=== PATIENT | female | born 1950 | race Caucasian/White ===

== ENCOUNTER → 2016-07-27 | Outpatient (CLI) | payer MEDICARE ==
--- NOTE | 2016-07-27 12:12 | MRI ---
EXAM DESCRIPTION: MR THORACIC SPINE WITHOUT IV CONTRAST CLINICAL HISTORY: 65 y/o F, RADICULOPATHY back pain between shoulder blades, no known injury COMPARISON: Chest CT performed on July 27, 2016 TECHNIQUE: Multiplanar multi sequence images of the thoracic spine were obtained without gadolinium contrast. FINDINGS: Vertebral body height and alignment are well maintained. There is no bone marrow edema. Visualized portions of the spinal cord are unremarkable. The paraspinal soft tissues are unremarkable. No pleural fluid collection is identified. Axial images were obtained only through 2 levels in the thoracic spine. Both levels show minimal posterior disk bulging without central canal or neural foraminal stenosis. There is disc desiccation and anterior disc bulging with anterior osteophyte formation at additional levels in the mid thoracic spine, but no posterior disc bulging, facet joint hypertrophy, central canal or neural foraminal stenosis is seen at any level. IMPRESSION: Anterior disc bulging and anterior osteophyte formation at several levels in the mid thoracic spine, but no significant posterior disc bulging, facet joint hypertrophy, central canal or neural foraminal stenosis at any level in the thoracic spine. Electronically signed by: Rashad Monroe DO 07/27/2016 12:10
--- NOTE | 2016-07-27 12:12 | CT ---
EXAM DESCRIPTION: Chest CT. CLINICAL HISTORY: In mild doses COMPARISON: None. TECHNIQUE: A noncontrast volumetric CT was acquired and displayed in multiplanar reconstructions. FINDINGS: Mediastinum: Prior sternotomy. Coronary artery disease noted. Visualized lymph nodes are within normal limits for CT size criteria. No acute aortic abnormality, pericardial effusion, or mediastinal mass. Upper Abdomen: Gallbladder has been removed. Lungs: Atelectasis seen within the left lung base. Dependent changes noted bilaterally. No pulmonary mass or nodule. No filling defect within the large bronchi or trachea. Bones: No suspicious bone lesion is seen. IMPRESSION: Atelectasis seen within the left lung base. No additional significant findings seen on today's exam. No pulmonary findings to account for patient's hemoptysis. Extensive Coronary artery disease in patient who is status post sternotomy. Electronically signed by: Javier Hernandez MD 07/27/2016 12:10
== END ==
LOC: MRI 09:41
PROVIDERS: ATTEND Family Medicine
DX: R04.2 Hemoptysis (principal); J98.11 Atelectasis; I25.10 Atherosclerotic heart disease of native coronary artery without angina pectoris; M51.14 Intervertebral disc disorders with radiculopathy, thoracic region; Z98.890 Other specified postprocedural states

== ENCOUNTER → 2016-11-18 | Outpatient (CLI) | payer MEDICARE | END | disposition home or self-care (01) | LOC: GMAJ 15:41 | PROVIDERS: ATTEND Family Medicine | DX: I25.10 Atherosclerotic heart disease of native coronary artery without angina pectoris (principal); R06.02 Shortness of breath ==

== ENCOUNTER → 2017-11-24 | Outpatient (CLI) | payer MEDICARE | LOC: LAB.O 13:38 | PROVIDERS: ATTEND Internal Medicine Rheumatology | DX: Z79.899 Other long term (current) drug therapy (principal) ==

== ENCOUNTER → 2018-05-23 | Outpatient (CLI) | payer MEDICARE, OTHER | LOC: LAB.O 14:07 | PROVIDERS: ATTEND Internal Medicine Rheumatology | DX: Z79.899 Other long term (current) drug therapy (principal) ==

== ENCOUNTER 2018-08-06 13:08 | Emergency (ER) | payer OTHER ==
--- NOTE | 2018-08-06 14:00 | RAD ---
EXAM DESCRIPTION: Chest,2 Views CLINICAL HISTORY: cough, mild sob 3d COMPARISON: CT July 27, 2016 FINDINGS: Cardiac silhouette is within normal limits. EKG leads project over the chest. Aorta is tortuous. There is atherosclerosis. Linear opacity within the left lung may represent scar. This is unchanged compared with the prior exam. There is no focal parenchymal or pleural disease. There is no acute osseous process visualized. IMPRESSION: No evidence of acute cardiopulmonary disease. Electronically signed by: Nato Blood MD 08/06/2018 1:57 PM [employer]
[2018-08-06] MEDS ORDERED: AZITHROMYCIN 250 MG TAB PO ONE (14:19)
[2018-08-06] MEDS ORDERED: IBUPROFEN 200 MG TAB PO ONE (14:19)
[2018-08-06] MEDS ORDERED: CETIRIZINE HCL 10 MG TAB PO ONE (14:19)
--- NOTE | 2018-08-06 14:25 | ED.PDOC ---
History of Present Illness - General Chief Complaint: Respiratory Problem Time Seen by Provider: 08/06/18 13:09 Source: patient Exam Limitations: no limitations - History of Present Illness Initial Comments: the patient is a 67-year-old female presenting to the emergency room secondary to a minimally productive cough over the last 3 days. Mild shortness of breath with exertion. No swelling. No chest pain. Low-grade fever. She has had a runny nose and congestion. No chest pain. No syncope or near syncope. She reports that she does not tolerate steroids. Severity: mild Improving Factors: nothing Worsening Factors: nothing Associated Symptoms: cough, fever/chills, malaise, shortness of breath - with activity primarily Allergies/Adverse Reactions: Allergies Lisinopril Allergy (Verified 08/06/18 13:46) Morphine Allergy (Verified 08/06/18 13:46) Home Medications: Ambulatory Orders Azithromycin 500 mg PO DAILY #5 tab 08/06/18 Celecoxib 200 mg PO DAILY 08/06/18 Clopidogrel Bisulfate [Plavix] 75 mg PO QD 08/06/18 Etanercept [Enbrel Sureclick] 50 mg IM WKLY 08/06/18 Folic Acid 1 mg PO 08/06/18 Furosemide [Lasix] 40 mg PO 08/06/18 Isosorbide Mononitrate [Isosorbide Mononitrate ER] 60 mg PO 08/06/18 Losartan Potassium 100 mg PO DAILY 08/06/18 Methotrexate [Xatmep] 2.5 mg PO DAILY 08/06/18 Tramadol HCl 100 mg PO DAILY 08/06/18 tiZANidine [Zanaflex] 4 mg PO DAILY 08/06/18 Review of Systems - Review of Systems Constitutional: States: fever - low-grade, malaise EENTM: States: nose congestion Respiratory: States: cough Cardiology: States: no symptoms reported Gastrointestinal/Abdominal: States: no symptoms reported Genitourinary: States: no symptoms reported Musculoskeletal: States: no symptoms reported Skin: States: no symptoms reported Neurological: States: no symptoms reported Endocrine: States: no symptoms reported All other Systems: No Change from Baseline Past Medical History (General) - Patient Medical History Hx Seizures: No Hx Stroke: No Hx Dementia: No Hx Asthma: No Hx of COPD: No Hx Cardiac Disorders: Yes Hx Congestive Heart Failure: No Hx Pacemaker: No Hx Hypertension: Yes Hx Thyroid Disease: No Hx Diabetes: No Hx Gastroesophageal Reflux: No Hx Renal Disease: No Hx Cancer: No Hx of HIV: No Hx Hepatitis C: No Hx MRSA: No - Vaccination History Hx Tetanus, Diphtheria Vaccination: No Hx Influenza Vaccination: Yes Hx Pneumococcal Vaccination: No Immunizations Up to Date: No - Social History Hx Tobacco Use: No Hx Chewing Tobacco Use: No Hx Alcohol Use: No Hx Substance Use: No Hx Substance Use Treatment: No Hx Depression: No Feels Threatened In Home Enviroment: No Feels Threatened In a Relationship: No Hx Physical Abuse: No Hx Emotional Abuse: No Hx Suspected Abuse: No - Activities of Daily Living Hospice Agency (if applicable):: None - Female History Patient is a Female of Child Bearing Age (10 -59 yrs old): No Patient : No - Triage Comment ED Triage Comment: took tylenol before arriving Family Medical History - Family History Mother Family History: Unknown Physical Exam - Physical Exam General Appearance: Alert, Comfortable, No apparent distress Eye Exam: bilateral normal Ears, Nose, Throat: hearing grossly normal, normal pharynx, nasal congestion Neck: full range of motion, supple Respiratory: no respiratory distress, no accessory muscle use, rhonchi Cardiovascular/Chest: normal peripheral pulses, regular rate, rhythm, no edema Peripheral Pulses: radial,right: 2+, radial,left: 2+, dorsalis pedis,right: 2+, dorsalis pedis,left: 2+ Gastrointestinal/Abdominal: non tender, soft Rectal Exam: deferred Back Exam: no CVA tenderness, no vertebral tenderness Extremity: non-tender, normal inspection, no pedal edema, normal capillary refill 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 Chest x-ray is reassuring and rapid flu is negative. She is not hypoxic and not in respiratory distress. The patient reports an intolerance to steroids so I do want her to use some ibuprofen several times daily to help reduce inflammation. She can additionally take 1 Zyrtec twice daily to help reduce mucus production. A humidifier at night may also help. She is going to be placed on azithromycin for atypical bacterial coverage, with first dose given here. ER warnings were given for any significant worsening. Follow up with primary care doctor next week. - Results/Orders Results/Orders: rapid flu is negative. Chest x-ray shows no acute pathology. - EKG/XRAY/CT CT Ordered: No CT Interpretation Call Back: No Departure - Departure Clinical Impression: Acute bronchitis Qualifiers: Bronchitis organism: unspecified organism Qualified Code(s): J20.9 - Acute bronchitis, unspecified Disposition: Discharge to Home or Self Care Condition: Fair Departure Forms: ED Discharge - Pt. Copy, Patient Portal Self Enrollment Instructions: Acute Bronchitis, Adult (DC) Diet: regular diet Activity: increase activity as tolerated Referrals: Nickolas Hendrix MD [Primary Care Provider] - 1-5 Days Prescriptions: Azithromycin 500 mg PO DAILY #5 tab Home Medications: Ambulatory Orders Azithromycin 500 mg PO DAILY #5 tab 08/06/18 Celecoxib 200 mg PO DAILY 08/06/18 Clopidogrel Bisulfate [Plavix] 75 mg PO QD 08/06/18 Etanercept [Enbrel Sureclick] 50 mg IM WKLY 08/06/18 Folic Acid 1 mg PO 08/06/18 Furosemide [Lasix] 40 mg PO 08/06/18 Isosorbide Mononitrate [Isosorbide Mononitrate ER] 60 mg PO 08/06/18 Losartan Potassium 100 mg PO DAILY 08/06/18 Methotrexate [Xatmep] 2.5 mg PO DAILY 08/06/18 Tramadol HCl 100 mg PO DAILY 08/06/18 tiZANidine [Zanaflex] 4 mg PO DAILY 08/06/18 Additional Instructions: the patient is a 67-year-old female presenting with what appears to be an acute bronchitis. Chest x-ray is reassuring and rapid flu is negative. She is not hypoxic and not in respiratory distress. The patient reports an intolerance to steroids so I do want her to use some ibuprofen several times daily to help reduce inflammation. She can additionally take 1 Zyrtec twice daily to help reduce mucus production. A humidifier at night may also help. She is going to be placed on azithromycin for atypical bacterial coverage, with first dose given here. ER warnings were given for any significant worsening. Follow up with primary care doctor next week.
[2018-08-06 14:44] VITALS: BP 117/73; TEMP 98.6; O2SAT 95
== END 2018-08-06 14:44 | disposition home or self-care (01) ==
LOC: ER 13:08
DX: J20.9 Acute bronchitis, unspecified (principal); I51.9 Heart disease, unspecified; Z79.899 Other long term (current) drug therapy; Z88.8 Allergy status to other drugs, medicaments and biological substances; Z88.5 Allergy status to narcotic agent
CPT/HCPCS: 71046; 87502; Q0144

== ENCOUNTER 2018-10-03 14:35 | Observation (INO) | payer OTHER ==
--- NOTE | 2018-10-03 14:55 | HP ---
SUPERVISING PHYSICIAN: Tr Vila M.D. CHIEF COMPLAINT: Near syncopal episodes secondary to bradycardia. HISTORY OF PRESENT ILLNESS: Ms. Priest is a 67 year-old female patient of Dr. Hendrix. She was seen in the clinic today for medication checkup. She had noted that she had been having some episodes of presyncope and dizziness. On vital sign check in the clinic, it was noted that on palpation of her radial pulse she was showing to be significantly bradycardic. EKG was showing a rate of 63 when actual palpated pulse was in the 30s. She is on Metoprolol 100 mg daily. She has no history of any issues with bradycardia. No recent changes in medication. She denies any actual syncopal episodes but notes that she has been significantly weakened and dizzy at times. She notes it is worse in the afternoons after lunch. She provides a significant history of coronary artery disease with previous coronary artery bypass grafting and multiple stent placements. She had one small episode of chest pain she reported 3 days previous, but no current chest pains on admission. She does have some ongoing shortness of breath which is more noticeable with exertional efforts. Dr. Hendrix requested that we place the patient in observation and take her off of Metoprolol and requested to observe her cardiac telemetry duvall and see if this will improve her heart rate. She does see Dr. Little for cardiology and he will hopefully be in the office this coming Tuesday at which time she will be followed-up. The patient now is going to be placed in observation for close cardiac monitoring and further management of her cardiac medication regimen. PAST MEDICAL HISTORY: 1. Hyperlipidemia. 2. Hypertension. 3. Coronary artery disease. 4. Abdominal aortic aneurysm. 5. Hepatitis B diagnosed in 1989. 6. Rheumatoid arthritis diagnosis in 2013. 7. Cervical spondylosis. 8. Anxiety. PAST SURGICAL HISTORY: 1. Coronary artery bypass graft in 2008. 2. Cholecystectomy. 3. Hysterectomy in 1969. 4. Multiple PTCAs with multiple stent placement with the most recent being in 2012 in April. 5. Abdominal aortic aneurysm stent placement. HOME MEDICATIONS: 1. Tizanidine 4 mg daily. 2. Tramadol 100 mg daily. 3. Methotrexate 2.5 mg. 4. Losartan 100 mg daily. 5. Isosorbide 50 mg daily. 6. Lasix 40 mg daily. 7. Folic acid 1 mg daily. 8. Enbrel 50 mg IM weekly. 9. Plavix 75 mg every day. 10. Celebrex 200 mg daily. ALLERGIES: LISINOPRIL AND MORPHINE. FAMILY HISTORY: Father's history is unknown. Mother at age 62 secondary to myocardial infarction. SOCIAL HISTORY: The patient is retired. She is . She has 3 children. She lives at [facility]. She does not drink alcohol and she smoked but stopped many years previously. Denies any illicit drug use. REVIEW OF SYSTEMS: CONSTITUTIONAL: Denies any fever or chills, general malaise. HEENT: Negative for ear aches, sore throat, nasal congestion, headaches. RESPIRATORY: Denies any shortness of breath, wheezing, coughing. CARDIOVASCULAR: Denies any active chest pains, reported chest pains 2 to 3 days ago. No peripheral edema. She has had some presyncopal episodes but no actual syncopal episodes. GASTROINTESTINAL: Negative for nausea, vomiting and diarrhea, constipation or abdominal pain. GENITOURINARY: Denies any dysuria, hematuria or polyuria. NEUROLOGIC: Negative for any ataxia, seizures, vision changes. PHYSICAL EXAMINATION: VITAL SIGNS: Pulse 97, blood pressure 46, satting 96% on room air with blood pressure 97/62, showing respirations of 16. GENERAL: The patient is well nourished and well hydrated. Appears to be in no acute distress. Resting comfortably in bed. She is alert. HEENT: Tympanic membranes are clear bilaterally. Oropharynx is pink and moist without any lesions. NECK: Supple, non-tender. Full range of motion. CHEST: Lung sounds are clear to auscultation bilaterally without any rhonchi, wheezing or rales. CARDIOVASCULAR: Regular rate and rhythm without appreciable murmurs, gallops, or rubs. GASTROINTESTINAL: No rebound tenderness. No guarding. Abdomen is soft, non- tender. Positive bowel sounds. EXTREMITIES: Without any edema. NEUROLOGIC: She is alert and oriented times three. LABORATORY: White count shows to be within normal limits at 5,700, hemoglobin 14.1, hematocrit 42.9, platelet count 157,000. Differential shows to be without a left shift. Normal PT and PTT. Chemistries show normal electrolytes with sodium 143, potassium 3.6, BUN 13, creatinine 1.15. Glucose 106. All liver functions are within normal limits. Initial troponin was 0.02. Urinalysis is pending. 12-lead showed from the clinic sinus bradycardia with frequent PVCs. ASSESSMENT: 1. Symptomatic bradycardia possibly due to beta blockade with Metoprolol. 2. History of rheumatoid arthritis on Methotrexate and Enbrel. 3. History of hypertension. 4. History of abdominal aortic aneurysm stent being followed by Dr. Hendrix. PLAN: The patient is going to be placed in observation tonight and started on telemetry. Will put a hold on her beta beni for tomorrow. Possibly this is something that will resolve with change in medication. Will have her on DVT prophylaxis per protocol. Should she show any signs on the monitor concerning for PVCs and decrease in bradycardia become more symptomatic, certainly will initiate treatment. Hopefully we can get her in to see Dr. Little this coming Tuesday. If not, it will be probably next week. Will plan to monitor her troponins every 6 hours as needed and readjust for any chest pains that may occur. Again will anticipate length of stay to be at least 1 to 2 days. Until she can transition back to outpatient management will continue to monitor and treat as needed. Again, will hold her Metoprolol and reassess in the morning and hopefully this will resolve her bradycardia. Once discharged she will need continued followup with Dr. Little, her sales systems engineer, as well as Dr. Hendrix. #[id number] MTDU
[2018-10-03] MEDS ORDERED: SODIUM CHLORIDE 0.9% (FLUSH) 10 ML SYG IV PRN (15:49)
[2018-10-03] MEDS ORDERED: NITROGLYCERIN 0.4 MG 25 EA TAB SL PRN (15:49)
[2018-10-03] MEDS ORDERED: ACETAMINOPHEN 325 MG TAB PO PRN (15:49)
[2018-10-03] MEDS ORDERED: IV SET AND CAP CHANGE INJ INJ SCH (16:00)
--- NOTE | 2018-10-03 16:14 | RAD ---
Study: Single Frontal Radiograph of the Chest. Indication:Bardycardia Comparison: August 06, 2018 Impression: Heart size normal. Median sternotomy wires present. Atherosclerosis aorta. Mild bibasilar atelectasis, otherwise lungs clear. No acute osseous abnormality. Electronically signed by: Hector Ricci MD 10/03/2018 4:11 PM CDT
[2018-10-03] MEDS: SODIUM CHLORIDE 0.9% (FLUSH) 10 ML SYG IV SCH (20:40)
[2018-10-03] MEDS ORDERED: CLOPIDOGREL 75 MG TAB PO SCH (22:30)
[2018-10-04] MEDS ORDERED: PARoxetine HCL 20 MG TAB ONE (08:13)
[2018-10-04] MEDS ORDERED: PANTOPRAZOLE SODIUM IV 40 MG VIAL ONE (08:24)
[2018-10-04] MEDS: SODIUM CHLORIDE 0.9% (FLUSH) 10 ML SYG IV SCH (08:53)
[2018-10-04] MEDS ORDERED: ENOXAPARIN SODIUM 40 MG/0.4 ML SYG SUBCU SCH (09:00)
[2018-10-04] MEDS ORDERED: PAROXETINE HCL 40 MG PO SCH (09:00)
[2018-10-04] MEDS ORDERED: FOLIC ACID 1 MG TAB PO SCH (09:00)
[2018-10-04] MEDS ORDERED: LOSARTAN POTASSIUM 100 MG TAB PO SCH (09:00)
[2018-10-04] MEDS ORDERED: NON-FORMULARY MEDICATION 1 EA MIS (Rosuvastatin Calcium [Rosuvastatin Calcium] 20 MG) PO SCH (09:00)
[2018-10-04] MEDS ORDERED: ASPIRIN (CHEWABLE) 81 MG TAB PO SCH (09:00)
[2018-10-04] MEDS ORDERED: PANTOPRAZOLE SODIUM TAB 40 MG PO SCH (09:00)
[2018-10-04] MEDS ORDERED: amLODIPine BESYLATE 5 MG TAB PO SCH (09:00)
[2018-10-04] MEDS ORDERED: ATORVASTATIN 20 MG TAB PO SCH (09:30)
[2018-10-04 09:56] VITALS: TEMP 98.2; O2SAT 95
[2018-10-04 10:17] VITALS: BP 140/92
[2018-10-05] MEDS ORDERED: PARoxetine HCL 20 MG TAB PO SCH (09:00)
--- NOTE | 2018-10-09 14:46 | DS ---
SUPERVISING PHYSICIAN: Tr Vila MD ADMISSION DIAGNOSIS: 1. Symptomatic bradycardia possibly due to beta blockade with metoprolol. 2. History of rheumatoid arthritis on methotrexate and Enbrel. 3. History of hypertension. 4. History of abdominal aortic aneurysm stent being followed by Dr. Hendrix. DISCHARGE DIAGNOSIS: 1. Symptomatic bradycardia due to beta blockade with metoprolol, showing improvement after stopping medication. 2. History of rheumatoid arthritis on methotrexate and Enbrel. 3. History of hypertension. 4. History of abdominal aortic aneurysm stent being followed by Dr. Hendrix. REASON FOR ADMISSION: Ms. Priest is a 67 year-old female patient of Dr. Hendrix. She was seen in the clinic today for medication checkup. She had noted that she had been having some episodes of presyncope and dizziness. On vital sign check in the clinic, it was noted that on palpation of her radial pulse she was showing to be significantly bradycardic. EKG was showing a rate of 63 when actual palpated pulse was in the 30s. She is on Metoprolol 100 mg daily. She has no history of any issues with bradycardia. No recent changes in medication. She denies any actual syncopal episodes but notes that she has been significantly weakened and dizzy at times. She notes it is worse in the afternoons after lunch. She provides a significant history of coronary artery disease with previous coronary artery bypass grafting and multiple stent placements. She had one small episode of chest pain she reported 3 days previous, but no current chest pains on admission. She does have some ongoing shortness of breath which is more noticeable with exertional efforts. Dr. Hendrix requested that we place the patient in observation and take her off of Metoprolol and requested to observe her cardiac telemetry duvall and see if this will improve her heart rate. She does see Dr. Little for cardiology and he will hopefully be in the office this coming Tuesday at which time she will be followed-up. The patient now is going to be placed in observation for close cardiac monitoring and further management of her cardiac medication regimen. LABORATORY: CBC on admission showed normal white count at 5,700. Coagulation studies showed normal PT, PTT. Chemistries showed normal electrolytes with troponin 0.02 x2 sets. RADIOLOGY: EKG showed sinus bradycardia with a few PVCs, no acute changes compared to EKG performed in the clinic prior to admission. HOSPITAL COURSE: Ms. Priest was admitted for symptomatic bradycardia. Her metoprolol was held. The patient showed good response to treatment. Tilt vital signs were within normal limits. She was no longer having symptoms. She was no longer having any dizziness or sinking type episodes. She was felt to be clinically stable enough to continue with outpatient management. PLAN: Ms. Priest was discharged on 10/04/18 with instructions to followup with Dr. Little on 10/09/18 at 9:[address] Hendrxi on 10/06/18 at 9:45 AM. She was to resume her home medications as directed except for the metoprolol. She was to return to the hospital for any worsening of her symptoms. Activity was as tolerated. Diet was cardiac diet as tolerated. No new medications were prescribed other than the modification of current regimen to hold metoprolol. CONDITION AT DISCHARGE: Stable and improving. DISPOSITION: The patient was discharged to care of family members. #[id number] MTDD
[2018-10-10] MEDS ORDERED: METHOTREXATE 2.5 MG PO SCH (09:00)
== END 2018-10-04 13:00 | disposition home or self-care (01) ==
LOC: MS 14:35 → INTOOBSV 14:35
PROVIDERS: ADMIT Nurse Practitioner Family; ATTEND Nurse Practitioner Family
DX: R00.1 Bradycardia, unspecified (principal); R55 Syncope and collapse; M06.9 Rheumatoid arthritis, unspecified; I10 Essential (primary) hypertension; I71.4 Abdominal aortic aneurysm, without rupture; I25.10 Atherosclerotic heart disease of native coronary artery without angina pectoris; E78.2 Mixed hyperlipidemia; M47.812 Spondylosis without myelopathy or radiculopathy, cervical region; F41.9 Anxiety disorder, unspecified; B35.4 Tinea corporis; Z79.1 Long term (current) use of non-steroidal anti-inflammatories (NSAID); Z79.02 Long term (current) use of antithrombotics/antiplatelets; Z79.899 Other long term (current) drug therapy; Z88.6 Allergy status to analgesic agent; Z88.8 Allergy status to other drugs, medicaments and biological substances; Z95.1 Presence of aortocoronary bypass graft; Z95.5 Presence of coronary angioplasty implant and graft; Z87.891 Personal history of nicotine dependence; Z86.19 Personal history of other infectious and parasitic diseases; Z90.49 Acquired absence of other specified parts of digestive tract; Z90.710 Acquired absence of both cervix and uterus; Z82.49 Family history of ischemic heart disease and other diseases of the circulatory system
CPT/HCPCS: 96372; J1650; 82553 ×2; 80053; 36415 ×3; 85025; 82550 ×2; 85730; 85610; 84484 ×2; 71045; 94760 ×2; 93005 ×3; G0378

== ENCOUNTER → 2018-10-06 | Outpatient (CLI) | payer OTHER | LOC: RESP 10:36 | PROVIDERS: ATTEND Family Medicine | DX: R00.1 Bradycardia, unspecified (principal) ==

== ENCOUNTER → 2019-12-07 | Outpatient (CLI) | payer OTHER | DX: R00.1 Bradycardia, unspecified (principal) ==

== ENCOUNTER → 2019-12-20 | Outpatient (CLI) | payer OTHER ==
--- NOTE | 2019-12-21 11:55 | MRI ---
EXAM DESCRIPTION: Lumbar Spine w/o Contrast : Magnetic Resonance Imaging. CLINICAL HISTORY: SPINAL STENOSIS LUMBAR REGION COMPARISON: Lumbar radiographs July 02. TECHNIQUE: Multiplanar, multiple standard sequences, non contrast MRI, lumbar spine. FINDINGS: L5-S1: The disc is well visualized on axial T2 series 501, image 3. Disc desiccation and disc space loss. 3 mm grade 1 anterolisthesis. Posterior left 5 mm protrusion with inferior migration and left subarticular recess stenosis. Displacement of the descending left S1 nerve. Minimal degenerative hypertrophy of the posterior flavum ligaments and facet joints (canal elements). Canal is patent. Borderline right foraminal stenosis. Moderate to severe left foraminal narrowing. L4-L5: Disc desiccation with disc space preserved. Minimal degenerative hypertrophy of the canal elements. Canal is patent. Minimal narrowing of the left foramen. Moderate narrowing of the right foramen. L3-L4: Disc desiccation with disc space preserved. Anterior disc bulge with marginal spurs. Hypertrophic degenerative changes in the canal elements. Canal is patent. L2-L3: Normal signal in the disc with disc space preserved. Minimal hypertrophic degenerative changes in the canal elements. Canal and foramina are patent. L1-L2: Normal signal in the disc. Anterior disc bulging and endplate marginal spurs. No posterior disc bulge. Minimal degenerative hypertrophy of the canal elements. Canal and foramina are patent. Conus terminates at this level. T12-L1: Normal signal in the disc and disc spaces. Anterior endplate reactive changes and disc bulge. Minimal hypertrophic degenerative changes in the canal elements. Foramina and canal are patent. No scoliosis. Paravertebral soft tissues showing 2 infrarenal abdominal aortic aneurysm measuring 2.7 x 2.5 cm and 2.8 x 2.6 cm at the level of L2 and L3 respectively.. Distal cord normal signal and caliber. Otherwise normal marrow signal in the remaining vertebral bodies and the posterior elements. Vertebral bodies are not compressed at any level. IMPRESSION: 1. Multiple levels of disc desiccation and hypertrophic changes in the flavum ligaments and posterior elements. 2. Left posterior L5-S1 disc protrusion and inferior migration of the L5-S1 disc with no subarticular recess stenosis and displacement of the left S1 nerve. Grade 1 anterolisthesis. 3. 2.8 cm abdominal infrarenal aortic aneurysm. [employer] Best Practice guidelines: 2.8 cm abdominal aortic aneurysm. Recommend follow-up every 5 years. Reference: J Am Suze Radiol 2013;10:789-794. Electronically signed by: Ermias Hunt MD 12/21/2019 11:54 AM CDT
== END ==
LOC: MRI 13:59
PROVIDERS: ATTEND Family Medicine
DX: M48.062 Spinal stenosis, lumbar region with neurogenic claudication (principal); M51.36 Other intervertebral disc degeneration, lumbar region; M24.28 Disorder of ligament, vertebrae; M43.17 Spondylolisthesis, lumbosacral region; M51.27 Other intervertebral disc displacement, lumbosacral region; I71.4 Abdominal aortic aneurysm, without rupture

== ENCOUNTER → 2020-01-08 | Outpatient (CLI) | payer OTHER | LOC: RESP 17:37 | PROVIDERS: ATTEND Family Medicine | DX: R00.1 Bradycardia, unspecified (principal) ==